=== PATIENT | female | born 1965 | race African-American/Black ===

== ENCOUNTER 2022-05-03 13:07 | Emergency (ER) | payer OTHER, MEDICAID ==
[~2022-05-03] VITALS: Ht 167.6 cm; Wt 88.0 kg
[2022-05-03] MEDS ORDERED: KETOROLAC 60MG/2ML VIAL IM ONE (15:30)
[2022-05-03 16:13] VITALS: BP 159/72
[2022-05-03] MEDS ORDERED: IBUP-2030 MT (17:03)
== END 2022-05-03 18:26 | disposition home or self-care (01) ==
LOC: ER 13:38
DX: S69.82XA Other specified injuries of left wrist, hand and finger(s), initial encounter (principal); S49.82XA Other specified injuries of left shoulder and upper arm, initial encounter; I10 Essential (primary) hypertension; E11.9 Type 2 diabetes mellitus without complications; W18.2XXA Fall in (into) shower or empty bathtub, initial encounter; Y93.E1 Activity, personal bathing and showering; Y92.012 Bathroom of single-family (private) house as the place of occurrence of the external cause
CPT/HCPCS: 29125; 73030; 73110; 73130; 96372; 99284; J1885; A4565

== ENCOUNTER 2025-01-12 12:09 | Emergency (ER) | payer MEDICARE, MEDICAID ==
[~2025-01-12] VITALS: Ht 170.2 cm; Wt 114.0 kg
[~2025-01-12 12:09] MED LIST: IBUP-2030 MT
[2025-01-12 12:13] VITALS: TEMP 36.7; O2SAT 98
[2025-01-12] MEDS: LIDOCAINE HCL 1% 20ML VIAL INFIL ONE (13:30)
[2025-01-12] MEDS ORDERED: IBUP-2029 MT (15:03)
[2025-01-12 15:15] VITALS: BP 148/66; PULSE 50; RESP 16; O2SAT 99
== END 2025-01-12 15:16 | disposition home or self-care (01) ==
LOC: ER 12:09
DX: S63.250A Unspecified dislocation of right index finger, initial encounter (principal); E11.9 Type 2 diabetes mellitus without complications; E78.00 Pure hypercholesterolemia, unspecified; I10 Essential (primary) hypertension; Z98.890 Other specified postprocedural states; Z79.899 Other long term (current) drug therapy; W19.XXXA Unspecified fall, initial encounter; Y93.89 Activity, other specified; Y92.89 Other specified places as the place of occurrence of the external cause; Y99.8 Other external cause status
CPT/HCPCS: 99284; 26770; 73120; J3490; A6449

== ENCOUNTER 2025-03-10 16:59 | Emergency (ER) | payer MEDICARE, MEDICAID ==
[~2025-03-10] VITALS: Ht 170.2 cm; Wt 117.0 kg
[~2025-03-10 16:59] MED LIST changes: +IBUP-1455 MT
[2025-03-10 17:22] VITALS: TEMP 36.7; O2SAT 98
[2025-03-10 19:49] LABS: PLATELET 198 x1000/uL (130-400); RED BLOOD CELL COUNT 4.07 mill/uL (4.2-5.4); RED CELL DISTRIBUTION WIDTH 15.5 % (11.6-14.6)
[2025-03-10 20:04] LABS: CREATININE 1.0 mg/dL (0.6-1.0); UREA NITROGEN BLOOD 11 mg/dL (9-23)
[2025-03-10 20:57] LABS: TROPONIN I HIGH SENSITIVITY 10 ng/L (3.0-34)
[2025-03-10] MEDS ORDERED: MUPI1OIN4 TP (21:49)
[2025-03-10 22:15] LABS: TROPONIN I HIGH SENSITIVITY 10 ng/L (3.0-34)
[2025-03-10 22:35] VITALS: BP 155/72; PULSE 55; RESP 16; O2SAT 99
== END 2025-03-10 22:39 | disposition home or self-care (01) ==
LOC: ER 16:59
DX: T23.202A Burn of second degree of left hand, unspecified site, initial encounter (principal); T31.0 Burns involving less than 10% of body surface; E11.9 Type 2 diabetes mellitus without complications; E78.00 Pure hypercholesterolemia, unspecified; R06.02 Shortness of breath; I10 Essential (primary) hypertension; I87.2 Venous insufficiency (chronic) (peripheral); X08.8XXA Exposure to other specified smoke, fire and flames, initial encounter; Y93.9 Activity, unspecified; Y92.89 Other specified places as the place of occurrence of the external cause; Y99.8 Other external cause status
CPT/HCPCS: 36415; 71045; 80048; 83880; 84484; 85027; 93005; 93970; 99285